=== PATIENT | male | born 1980 | race Caucasian/White ===

== ENCOUNTER 2017-05-17 17:48 | Emergency (ER) | payer OTHER ==
[2017-05-17 17:59] VITALS: RESP 16; TEMP 98.8; O2SAT 97
[2017-05-17] MEDS ORDERED: NS 1,000 ML IV ONE (18:18)
--- NOTE | 2017-05-17 18:25 | EDPHY ---
H & P Stated Complaint: diarrhea x 3 weeks and noted blood in stool last few days Time Seen by Provider: 05/17/17 18:17 HPI/ROS: HPI: This is a 37-year-old male who presents with Chief Complaint: diarrhea x 3 weeks and noted blood in stool last few days Location: GI Quality: Loose stool Duration: 3 weeks Signs and Symptoms: + lower back pain, + rectal pain, no nausea, no vomiting, + abdominal cramping, + urinary hesitancy, + blood in stool Timing: Intermittent, 2 times per day Severity: [id number] Context: Patient complains of loose stool, daily, to 3 times per day, accompanied by abdominal bloating and cramping for the last 3 weeks. He also complains of low back pain/rectal pain during this time and has been taking 800 mg of ibuprofen several times per day. Over the last 2 days, he has noted blood after he wipes on this toilet tissue paper. He has a history of prostatitis and irritable bowel syndrome. He had a colonoscopy approximately 5 years ago with biopsies and per patient was negative for ulcerative colitis, Crohn's, malignancy. Denies rectal trauma. No concern for food borne illnesses. No recent antibiotic use. He was seen at his primary care provider today; with a digital rectal exam being grossly positive; no fissures/masses noted. He was sent to the ER for further evaluation. Modifying Factors: Ibuprofen Comment: ROS: see HPI Constitutional: No fever, no chills, no weight loss Eyes: No blurred vision Respiratory: No shortness of breath, no cough Cardiovascular: No chest pain Gastrointestinal: No nausea, no vomiting, no diarrhea Genitourinary: No dysuria Extremities: No myalgias Neurologic: No weakness, no numbness Skin: No rashes Hematologic: No bruising, no bleeding MEDICAL/SURGICAL/SOCIAL HISTORY: Medical history: Anxiety, irritable bowel syndrome Surgical history: Denies Social history: Employed CONSTITUTIONAL: Extremely well-appearing adult white male, awake and alert, no obvious distress HEENT: Atraumatic and normocephalic, PERRL, EOMI. Tympanic membranes clear. Oropharynx clear, no exudate and moist pink mucosa. Airway patent. No lymphadenopathy. No meningismus. Cardiovascular: Normal S1/S2, regular rate, regular rhythm, without murmur rub or gallop. PULMONARY/CHEST: Symmetrical and nontender. Clear to auscultation bilaterally. Good air movement. No accessory muscle usage. ABDOMEN: Soft, nondistended, nontender, no rebound, no guarding, no peritoneal signs, no masses or organomegaly. No CVAT. RECTAL: Refused per patient as performed by primary care provider, guaiac positive EXTREMITIES: 2/2 pulses, no deformities, no clubbing, no cyanosis or edema. NEUROLOGICAL: no focal neuro deficits. GCS 15. SKIN: Warm and dry, no erythema. no rash. Good capillary refill. Source: Patient Exam Limitations: No limitations - Personal History Current Tetanus/Diphtheria Vaccine: Yes - Medical/Surgical History Hx Asthma: No Hx Chronic Respiratory Disease: No Hx Diabetes: No Hx Cardiac Disease: No Hx Renal Disease: No Hx Cirrhosis: No Hx Alcoholism: No Hx HIV/AIDS: No Hx Splenectomy or Spleen Trauma: No Other PMH: anxiety - Social History Smoking Status: Never smoked Constitutional: Initial Vital Signs Temperature (C) 37.1 C 05/17/17 17:57 Heart Rate 57 L 05/17/17 17:57 Respiratory Rate 16 05/17/17 17:57 Blood Pressure 154/92 H 05/17/17 17:57 O2 Sat (%) 97 05/17/17 17:57 O2 Delivery Mode Room Air Allergies/Adverse Reactions: celecoxib [From Celebrex] Allergy (Verified 05/17/17 17:56) Home Medications: Medication Instructions Recorded Hydrocortisone/Pramoxine 10 gm RC TID PRN #12 foam 05/17/17 [Proctofoam-Hc 1%-1% Foam] Lexapro 05/17/17 Medical Decision Making - Diagnostics Imaging Results: Imaging Impressions Abdomen CT 05/17/17 18:25 Impression: 1. No acute abdominal or pelvic abnormality. 2. See above report for additional findings. Results called and discussed with Leidy Xiong PA-C on 05/17/2017 at 20:25 ED Course/Re-evaluation: Urinalysis, labs, CT abdomen and pelvis scan, IV fluids, stool studies ordered Patient refused repeat rectal examination Will evaluate for colitis/prostatitis/diverticulitis. Vital signs reviewed and stable. Afebrile. 2024: Called by radiologist Dr. Sullivan who advises CT abdomen and pelvis scan does not show signs of small-bowel obstruction, colitis, obstructive uropathy, pyelonephritis, prostatitis, diverticulitis UA does not show zaria signs of infection. 2039: Notified by nursing that small amount of mucous blood tinge stool sent down for analysis. Waiting on urinalysis. Suspect rectal irritation and irritable bowel. Will wait for stool study results to initiate antibiotics. H&H is stable. Patient is appropriate for outpatient treatment. Will give Anusol HC for perirectal irritation. Advised to avoid NSAIDs. Follow-up with Gastroenterology outpatient. Needs a colonoscopy. Differential Diagnosis: Lower GI bleeding including but not limited to diverticulosis, tumor, AVM, hemorrhoid, prostatitis and anal fissure. - Data Points Laboratory Results: Laboratory Results 05/17/17 18:20 05/17/17 18:20 05/17/17 05/17/17 05/17/17 20:50 20:00 18:20 WBC RBC Hgb Hct MCV MCH MCHC RDW Plt Count MPV Neut % (Auto) Lymph % (Auto) [place] % (Auto) Eos % (Auto) Baso % (Auto) Nucleat RBC Rel Count Absolute Neuts (auto) Absolute Lymphs (auto) Absolute Monos (auto) Absolute Eos (auto) Absolute Basos (auto) Absolute Nucleated RBC Immature Gran % Seg Neutrophils % Band Neutrophils % Lymphocytes % Monocytes % Basophils % Immature Gran # Absolute Seg Neuts Absolute Band Neuts Absolute Lymphocytes Absolute Monocytes Absolute Basophils RBC/WBC/PLT Morphology Platelet Estimate Sodium 141 mEq/L mEq/L (134-144) Potassium 4.0 mEq/L mEq/L (3.5-5.2) Chloride 106 mEq/L mEq/L (97-110) Carbon Dioxide 21 mEq/l L mEq/l (22-31) Anion Gap 14 mEq/L mEq/L (8-16) BUN 17 mg/dL mg/dL (7-23) Creatinine 0.9 mg/dL mg/dL (0.7-1.3) Estimated GFR > 60 Glucose 88 mg/dL mg/dL (70-100) Calcium 9.6 mg/dL mg/dL (8.5-10.4) Total Bilirubin 0.9 mg/dL mg/dL (0.1-1.4) Conjugated Bilirubin 0.4 mg/dL mg/dL (0.0-0.5) Unconjugated Bilirubin 0.5 mg/dL mg/dL (0.0-1.1) AST 41 IU/L IU/L (17-59) ALT 79 IU/L H IU/L (21-72) Alkaline Phosphatase 74 IU/L IU/L (38-126) Total Protein 8.3 g/dL H g/dL (6.3-8.2) Albumin 4.7 g/dL g/dL (3.5-5.0) Lipase 72 IU/L IU/L (23-300) Urine Color YELLOW Urine Appearance CLEAR Urine pH 5.0 (5.0-7.5) Ur Specific [place] > 1.035 H (1.002-1.030) Urine Protein NEGATIVE (NEGATIVE) Urine Ketones 1+ H (NEGATIVE) Urine Blood NEGATIVE (NEGATIVE) Urine Nitrate NEGATIVE (NEGATIVE) Urine Bilirubin NEGATIVE (NEGATIVE) Urine Urobilinogen NEGATIVE EU EU (0.2-1.0) Ur Leukocyte Esterase NEGATIVE (NEGATIVE) Urine Glucose NEGATIVE (NEGATIVE) Stool Occult Bld Scrn POSITIVE H (NEGATIVE) C. difficile Tox (PCR) Cancelled 05/17/17 18:20 WBC 6.14 10^3/uL 10^3/uL (3.80-9.50) RBC 5.39 10^6/uL 10^6/uL (4.40-6.38) Hgb 16.5 g/dL g/dL (13.7-17.5) Hct 46.8 % % (40.0-51.0) MCV 86.8 fL fL (81.5-99.8) MCH 30.6 pg pg (27.9-34.1) MCHC 35.3 g/dL g/dL (32.4-36.7) RDW 13.3 % % (11.5-15.2) Plt Count 245 10^3/uL 10^3/uL (150-400) MPV 9.5 fL fL (8.7-11.7) Neut % (Auto) 55.4 % % (39.3-74.2) Lymph % (Auto) 25.9 % % (15.0-45.0) [place] % (Auto) 16.4 % H % (4.5-13.0) Eos % (Auto) 1.0 % % (0.6-7.6) Baso % (Auto) 1.1 % % (0.3-1.7) Nucleat RBC Rel Count 0.0 % % (0.0-0.2) Absolute Neuts (auto) 3.40 10^3/uL 10^3/uL (1.70-6.50) Absolute Lymphs (auto) 1.59 10^3/uL 10^3/uL (1.00-3.00) Absolute Monos (auto) 1.01 10^3/uL H 10^3/uL (0.30-0.80) Absolute Eos (auto) 0.06 10^3/uL 10^3/uL (0.03-0.40) Absolute Basos (auto) 0.07 10^3/uL 10^3/uL (0.02-0.10) Absolute Nucleated RBC 0.00 10^3/uL 10^3/uL (0-0.01) Immature Gran % 0.2 % % (0.0-1.1) Seg Neutrophils % 56 % % Band Neutrophils % 4 % % Lymphocytes % 29 % % Monocytes % 10 % % Basophils % 1 % % Immature Gran # 0.01 10^3/uL 10^3/uL (0.00-0.10) Absolute Seg Neuts 3.44 10^/uL 10^/uL (1.70-6.50) Absolute Band Neuts 0.25 10^3/uL 10^3/uL (0.00-0.70) Absolute Lymphocytes 1.78 10^3/uL 10^3/uL (1.00-3.00) Absolute Monocytes 0.61 10^3/uL 10^3/uL (0.30-0.80) Absolute Basophils 0.06 10^3/uL 10^3/uL (0.02-0.10) RBC/WBC/PLT Morphology NORMAL (NORMAL) Platelet Estimate ADEQUATE (ADEQ) Sodium Potassium Chloride Carbon Dioxide Anion Gap BUN Creatinine Estimated GFR Glucose Calcium Total Bilirubin Conjugated Bilirubin Unconjugated Bilirubin AST ALT Alkaline Phosphatase Total Protein Albumin Lipase Urine Color Urine Appearance Urine pH Ur Specific [place] Urine Protein Urine Ketones Urine Blood Urine Nitrate Urine Bilirubin Urine Urobilinogen Ur Leukocyte Esterase Urine Glucose Stool Occult Bld Scrn C. difficile Tox (PCR) Medications Given: Discontinued Medications Sodium Chloride (Ns) 1,000 mls @ 0 mls/hr IV EDNOW ONE; Wide Open PRN Reason: Protocol Stop: 05/17/17 18:19 Last Admin: 05/17/17 18:30 Dose: 1,000 mls Departure - Departure Disposition: Home, Routine, Self-Care Clinical Impression: Perirectal skin irritation, Blood present in stool Condition: Good Instructions: Gastrointestinal Bleeding (ED), Rectal Bleeding (ED) Additional Instructions: Avoid all ibuprofen, Aleve, Motrin, aspirin (NSAIDs) until bleeding stops. Use Anusol HC suppositories as needed for perirectal irritation. Perform Sitz baths with warm, rather than cold, water two to three times per day. Follow-up with Gastroenterology next week. Referrals: Juan Eng MD [Primary Care Provider] - As per Instructions Watson Shetty MD [Medical Doctor] - As per Instructions Prescriptions: Hydrocortisone/Pramoxine [Proctofoam-Hc 1%-1% Foam] 10 gm RC TID PRN #12 foam PRN Reason: Pain, Moderate
[2017-05-17 18:33] LABS: % IMMATURE GRANULYOCYTES 0.2 % (0.0-1.1); ABSOLUTE IMMATURE GRANULOCYTES 0.01 10^3/uL (0.00-0.10); ADD DIFF? NO; ADD MORPH? NO; ADD SCAN? YES; FRAGMENT RBC FLAG 0 (0-99); HEMATOCRIT 46.8 % (40.0-51.0); HEMOGLOBIN 16.5 g/dL (13.7-17.5); LEFT SHIFT FLG 0 (0-99); LIPEMIA HEMOLYSIS FLAG 90 (0-99); MEAN CELL HEMOGLOBIN 30.6 pg (27.9-34.1); MEAN CELL HEMOGLOBIN CONCENTR. 35.3 g/dL (32.4-36.7); MEAN CELL VOLUME 86.8 fL (81.5-99.8); MEAN PLATELET VOLUME 9.5 fL (8.7-11.7); PLATELET CLUMPS FLAG 0 (0-99); PLATELET COUNT 245 10^3/uL (150-400); RED BLOOD CELL COUNT 5.39 10^6/uL (4.40-6.38); RED CELL DISTRIBUTION WIDTH 13.3 % (11.5-15.2)
[2017-05-17 18:34] LABS: ATYPICAL LYMPHOCYTE FLAG 140 (0-99)
[2017-05-17 18:46] LABS: ALANINE AMINOTRANSFERASE 79 IU/L (21-72); ALBUMIN 4.7 g/dL (3.5-5.0); ALKALINE PHOSPHATASE 74 IU/L (38-126); ANION GAP 14 mEq/L (8-16); ASPARTATE AMINOTRANSFERASE 41 IU/L (17-59); BILIRUBIN,TOTAL 0.9 mg/dL (0.1-1.4); BILIRUBIN-CONJUGATED 0.4 mg/dL (0.0-0.5); BILIRUBIN-UNCONJUGATED 0.5 mg/dL (0.0-1.1); CALCIUM 9.6 mg/dL (8.5-10.4); CARBON DIOXIDE 21 mEq/l (22-31); CHLORIDE 106 mEq/L (97-110); CREATININE 0.9 mg/dL (0.7-1.3); GLOMERULAR FILTRATION RATE > 60; GLUCOSE 88 mg/dL (70-100); SODIUM 141 mEq/L (134-144); TOTAL PROTEIN 8.3 g/dL (6.3-8.2)
[2017-05-17] MEDS ORDERED: IOPAMIDOL (ISOVUE-300) 100 ML BTL ONE ×2 (19:02→19:12)
[2017-05-17 19:14] LABS: SCAN POSITIVE
[2017-05-17 19:19] LABS: PLATELET ESTIMATE ADEQUATE (ADEQ)
[2017-05-17 21:06] LABS: COLOR YELLOW; LEUKOCYTE ESTERASE,URINE NEGATIVE (NEGATIVE); NITRITE,URINE NEGATIVE (NEGATIVE)
[2017-05-17] MEDS ORDERED: PROCTOFOAM HC 10 GM CAN PR SCH (21:45)
[2017-05-17 21:48] VITALS: BP 130/89; PULSE 59
== END 2017-05-17 21:57 | disposition home or self-care (01) ==
PROC: 3E0337Z Introduction of Electrolytic and Water Balance Substance into Peripheral Vein, Percutaneous Approach (ICD-10-PCS; principal; 2017-05-17)
DX: R19.5 Other fecal abnormalities (principal); K62.89 Other specified diseases of anus and rectum; E86.9 Volume depletion, unspecified
CPT/HCPCS: Q9967